=== PATIENT | female | born 1990 | race Two or more races ===

== ENCOUNTER → 2021-08-09 | Outpatient (CLI) | payer OTHER ==
[~2021-08-09] MED LIST: BUPIVACAINE/DEXTROSE MPF 0.75% 2 ML AMP IT ONE; DOCU-94 PO; DexAMETHasone SOD PHOS 10MG/1ML VIAL INJ ONE; EPINEPHrine HCL 1 MG/1 ML AMP ONE; FERR27TA2 PO; HYDR-4833 PO; IBUP600T27 PO; LEVO112T4 PO; MIDAZOLAM HCL 2MG/2ML 2ml VIAL (1mg/ml) ONE; MORPHINE SULF PF 2 MG/2 ML SYRG ONE; ONDANSETRON HCL 4 MG/2 ML VIAL ONE; PREN-96 PO; fentaNYL CITRATE 100 MCG/2 ML VL ONE; oxyTOCIN 10 UNIT/ML 10ML VIAL ONE
== END | disposition home or self-care (01) ==
LOC: OB 08:05
PROVIDERS: ATTEND Obstetrics & Gynecology
DX: Z01.812 Encounter for preprocedural laboratory examination (principal); Z20.822 Contact with and (suspected) exposure to COVID-19
CPT/HCPCS: C9803; U0003; J0171; J2250; J2405

== ENCOUNTER 2021-08-11 04:50 | Inpatient (IN) | payer OTHER ==
[2021-08-11] VITALS (18 sets, daily range): BP systolic 101–136; BP diastolic 50–81
[~2021-08-11] VITALS: Ht 162.6 cm; Wt 100.7 kg
[2021-08-11] MEDS ORDERED: LACTATED RINGER'S 1,000 ML IV ONE (05:15)
[2021-08-11] MEDS ORDERED: ceFAZolin 1GM/50ML 50 ML IV ONE (05:15)
[2021-08-11 06:01] LABS: Urine Bacteria FEW /hpf (None Seen); Urine Blood Negative /uL (Negative); Urine Mucus FEW (None Seen); Urine WBC 5 /hpf (0 - 5)
[2021-08-11 06:16] LABS: Basophils # (auto) 0 10 ^3/uL (0-0.2); Basophils % (auto) 0.3 % (0.0-2.0); Eosinophils # (auto) 0.1 10 ^3/uL (0-0.8); Eosinophils % (auto) 1.7 % (0.0-7.0); Hematocrit 35.1 % (36.0-46.0); Hemoglobin 11.5 g/dL (12.2-16.2); Lymphocytes # (auto) 1.9 10 ^3/uL (0.4-5.4); Lymphocytes % (auto) 22.9 % (10.0-50.0); Mean Corpuscular Hemoglobin 27.4 pg (28.0-32.0); Mean Corpuscular Hgb Conc. 32.9 g/dL (32.0-36.0); Mean Corpuscular Volume 83.2 fL (80.0-100.0); Monocytes # (auto) 0.6 10 ^3/uL (0-1.3); Neutrophils # (auto) 5.7 10 ^3/uL (1.6-8.6); Neutrophils % (auto) 68.1 % (37.0-80.0); Nucleated Red Blood Cells % 0.1 %; Red Blood Cells 4.21 10^6/uL (4.0-5.20); Red Cell Distribution Width 19.5 % (11.8-14.3); White Blood Cell 8.4 10^3/uL (4.4-10.8)
[2021-08-11 06:17] LABS: Albumin 2.6 g/dL (3.4-5.0); BUN/Creatinine Ratio 15.7; Calcium 8.6 mg/dL (8.5-10.1); Potassium 3.8 mmol/L (3.5-5.1)
[2021-08-11] MEDS ORDERED: PREN-96 PO (06:17)
[2021-08-11] MEDS ORDERED: LEVO112T4 PO (06:19)
[2021-08-11] MEDS ORDERED: FERR27TA2 PO (06:19)
[2021-08-11 06:20] LABS: Bilirubin, Total 0.2 mg/dL (0.2-1.0); Total Protein 6.4 g/dL (6.4-8.2)
[2021-08-11 06:25] LABS: Amphetamine Screen, Urine NEGATIVE (NEGATIVE); Barbiturate Scree,Urine NEGATIVE (NEGATIVE); Benzodiazephine Screen, Urine NEGATIVE (NEGATIVE); Cannabinoid Screen, Urine NEGATIVE (NEGATIVE)
[2021-08-11 06:31] LABS: Alcohol, Urine < 3.0 mg/dL (0-10); Cocaine Screen, Urine NEGATIVE (NEGATIVE); Opiate Scree,Urine NEGATIVE (NEGATIVE); Phencyclidine Screen, Urine NEGATIVE (NEGATIVE)
[2021-08-11] MEDS: LACTATED RINGER'S 1,000 ML IV SCH ×3 (07:04→17:58)
[2021-08-11 07:07] LABS: INR 0.96 (0.9-1.15); Partial Thromboplastin Time 26.2 sec (23.6-33.0)
[2021-08-11] MEDS ORDERED: TETRACAINE 1% INJ 2 ML VIAL IJ ONE (07:44)
[2021-08-11] MEDS ORDERED: SUCCINYLCHOLINE CHLORIDE 20 MG/ML 10ML VIAL IV ONE (07:44)
[2021-08-11] MEDS ORDERED: ceFAZolin 1GM/50ML 50 ML IV SCH ×2 (09:45→14:00)
[2021-08-11] MEDS ORDERED: ONDANSETRON HCL 4 MG/2 ML VIAL IV PRN (09:45)
[2021-08-11] MEDS ORDERED: LACT. RINGERS/OXYTOCIN 20UNITS 1,000 ML IV ONE (09:45)
[2021-08-11] MEDS ORDERED: MORPHINE SULFATE 4 MG/ML SYR/VIAL IV PRN ×2 (09:45→10:30)
[2021-08-11] MEDS ORDERED: METOCLOPRAMIDE HCL 5MG/ml INJ 2ml VIAL IV PRN (10:30)
[2021-08-11] MEDS ORDERED: KETOROLAC TROMETH 30 MG/ML 1ML VIAL IV ONE (10:30)
[2021-08-11] MEDS ORDERED: NALOXONE HCL 0.4 MG/ML VIAL IV PRN (10:30)
[2021-08-11] MEDS ORDERED: HYDROmorphone HCL 2 MG/ML VL IV PRN (10:30)
[2021-08-11] MEDS ORDERED: diphenhdrAMINE HCL 50 MG/1 ML VL IV PRN (10:30)
[2021-08-11] MEDS: ACETAMINOPHEN IV 1000 MG/100ML (10MG/ML) IV PRN (12:51)
[2021-08-11] MEDS ORDERED: EPINEPHrine HCL 1 MG/1 ML AMP IM ONE (14:08)
[2021-08-11] MEDS ORDERED: MORPHINE SULF PF 2 MG/2 ML SYRG IV ONE (14:08)
[2021-08-11] MEDS ORDERED: oxyTOCIN 10 UNIT/ML 10ML VIAL IV ONE (14:08)
[2021-08-11] MEDS ORDERED: MIDAZOLAM HCL 2MG/2ML 2ml VIAL (1mg/ml) IV ONE (14:08)
[2021-08-11] MEDS ORDERED: ONDANSETRON HCL 4 MG/2 ML VIAL IV ONE (14:08)
[2021-08-11] MEDS ORDERED: DexAMETHasone SOD PHOS 10MG/1ML VIAL INJ IV ONE (14:08)
[2021-08-11] MEDS ORDERED: fentaNYL CITRATE 100 MCG/2 ML VL IV ONE (14:08)
[2021-08-11] MEDS ORDERED: BUPIVACAINE/DEXTROSE MPF 0.75% 2 ML AMP IT ONE (14:08)
[2021-08-11 22:05] LABS: Basophils # (auto) 0 10 ^3/uL (0-0.2); Basophils % (auto) 0.3 % (0.0-2.0); Eosinophils # (auto) 0 10 ^3/uL (0-0.8); Hematocrit 32.3 % (36.0-46.0); Hemoglobin 10.7 g/dL (12.2-16.2); Lymphocytes # (auto) 1.5 10 ^3/uL (0.4-5.4); Lymphocytes % (auto) 9.7 % (10.0-50.0); Mean Corpuscular Hemoglobin 27.6 pg (28.0-32.0); Mean Corpuscular Hgb Conc. 33.2 g/dL (32.0-36.0); Mean Corpuscular Volume 83.2 fL (80.0-100.0); Monocytes # (auto) 0.7 10 ^3/uL (0-1.3); Monocytes % (auto) 4.6 % (0.0-12.0); Neutrophils # (auto) 12.8 10 ^3/uL (1.6-8.6); Neutrophils % (auto) 85.4 % (37.0-80.0); Nucleated Red Blood Cells % 0.1 %; Red Blood Cells 3.88 10^6/uL (4.0-5.20); Red Cell Distribution Width 19.4 % (11.8-14.3)
[2021-08-11] MEDS: ceFAZolin 1GM/50ML 50 ML IV SCH (23:24)
[2021-08-12] VITALS (11 sets, daily range): BP systolic 97–122; BP diastolic 41–62
[2021-08-12] MEDS: ACETAMINOPHEN IV 1000 MG/100ML (10MG/ML) IV PRN (00:59)
[2021-08-12] MEDS: LACTATED RINGER'S 1,000 ML IV SCH (04:12)
[2021-08-12] MEDS: LEVOTHYROXINE SODIUM 112 MCG TAB PO SCH (07:26)
[2021-08-12] MEDS: ceFAZolin 1GM/50ML 50 ML IV SCH (07:26)
[2021-08-12 07:31] LABS: Basophils # (auto) 0 10 ^3/uL (0-0.2); Basophils % (auto) 0.1 % (0.0-2.0); Eosinophils # (auto) 0 10 ^3/uL (0-0.8); Eosinophils % (auto) 0.1 % (0.0-7.0); Hematocrit 29.8 % (36.0-46.0); Hemoglobin 9.9 g/dL (12.2-16.2); Lymphocytes # (auto) 2.6 10 ^3/uL (0.4-5.4); Lymphocytes % (auto) 19.6 % (10.0-50.0); Mean Corpuscular Hemoglobin 27.6 pg (28.0-32.0); Mean Corpuscular Hgb Conc. 33.3 g/dL (32.0-36.0); Mean Corpuscular Volume 82.9 fL (80.0-100.0); Monocytes # (auto) 1.1 10 ^3/uL (0-1.3); Monocytes % (auto) 8.2 % (0.0-12.0); Neutrophils # (auto) 9.6 10 ^3/uL (1.6-8.6); Red Blood Cells 3.59 10^6/uL (4.0-5.20); Red Cell Distribution Width 19.2 % (11.8-14.3); White Blood Cell 13.3 10^3/uL (4.4-10.8)
[2021-08-12] MEDS ORDERED: SIMETHICONE 80 MG CHEWABLE TABLET PO PRN (10:15)
[2021-08-12] MEDS ORDERED: HYDROcodone-ACET 5/325MG TAB PO PRN ×2 (10:15)
[2021-08-12] MEDS ORDERED: BISACODYL 10 MG RECT SUPP PR PRN (10:15)
[2021-08-12] MEDS ORDERED: DOCUSATE CALCIUM 240 MG CAP PO SCH (10:30)
[2021-08-12] MEDS: IBUPROFEN 800 MG TAB PO PRN ×2 (10:34→22:10)
[2021-08-12] MEDS ORDERED: ACETAMINOPHEN 325 MG TAB PO PRN (16:00)
[2021-08-12] MEDS ORDERED: ACETAMINOPHEN IV 1000 MG/100ML (10MG/ML) IV ONE (16:15)
[2021-08-12] MEDS ORDERED: DOCUSATE SOD 100 MG CAP PO SCH (22:00)
[2021-08-12] MEDS: DOCUSATE CALCIUM 240 MG CAP PO SCH (22:31)
[2021-08-13 02:53] VITALS: BP 100/51
[2021-08-13] MEDS: IBUPROFEN 800 MG TAB PO PRN (05:58)
[2021-08-13 06:06] LABS: RPR Non Reactive (Non Reactive)
[2021-08-13 07:00] VITALS: BP 102/62
[2021-08-13] MEDS: LEVOTHYROXINE SODIUM 112 MCG TAB PO SCH (07:40)
[2021-08-13] MEDS ORDERED: HYDR-4833 PO (08:42)
[2021-08-13] MEDS ORDERED: IBUP600T27 PO (08:43)
[2021-08-13] MEDS ORDERED: DOCU-94 PO (08:43)
[2021-08-13] MEDS ORDERED: DOCUSATE CALCIUM 240 MG CAP PO SCH (10:00)
[2021-08-13] MEDS ORDERED: DERMOPLAST 60ML BOTTLE TOP PRN (10:30)
[2021-08-13] MEDS ORDERED: WITCH HAZEL-GLYCERIN PAD TOP PRN (10:30)
[2021-08-13] MEDS: DOCUSATE CALCIUM 240 MG CAP PO SCH (10:46)
[2021-08-13 10:51] VITALS: BP 114/61
== END 2021-08-13 14:29 | disposition home or self-care (01) | DRG 787 ==
LOC: LDRP 04:50
PROVIDERS: ADMIT Obstetrics & Gynecology; ATTEND Obstetrics & Gynecology
PROC: 10D00Z1 Extraction of Products of Conception, Low, Open Approach (ICD-10-PCS; principal; 2021-08-11 08:40)
DX: O34.211 Maternal care for low transverse scar from previous cesarean delivery (principal); R71.0 Precipitous drop in hematocrit; Z37.0 Single live birth; Z3A.38 38 weeks gestation of pregnancy
CPT/HCPCS: 36415; 59025; 80053; 80307; 81001; 81002; 85025; 85610; 85730; 86592; 86850; 86900; 86901; 94760; 94762; 96360; 96361; 96365; 96366; G0378; J0131; J0171; J0330; J0690; J1100; J2250; J2405; J2590

== ENCOUNTER 2025-04-11 07:46 | Observation (INO) | payer OTHER ==
[~2025-04-11 07:46] MED LIST changes: -BUPIVACAINE/DEXTROSE MPF 0.75% 2 ML AMP IT ONE; -DexAMETHasone SOD PHOS 10MG/1ML VIAL INJ ONE; -EPINEPHrine HCL 1 MG/1 ML AMP ONE; +FERR1TAB31 PO; -FERR27TA2 PO; +IBUP-1454 PO; -IBUP600T27 PO; -MIDAZOLAM HCL 2MG/2ML 2ml VIAL (1mg/ml) ONE; -MORPHINE SULF PF 2 MG/2 ML SYRG ONE; -ONDANSETRON HCL 4 MG/2 ML VIAL ONE; -fentaNYL CITRATE 100 MCG/2 ML VL ONE; -oxyTOCIN 10 UNIT/ML 10ML VIAL ONE
--- NOTE | 2025-04-11 10:01 | DVHDS2 ---
Physician Discharge Progress N Final Diagnosis: testing for AMA/hypothyroid Operations or Procedures: Operations or Procedures 34yo IUP@30.4wks VSS NST reactive FKC/PTL precautions reviewed. Dr. Delatorre consulted, agrees with POC. Condition on Discharge: Stable Disposition: Home Discharge Instructions: Diet: Regular Activity: No Restrictions, As Tolerated Follow Up/Referral: Follow up in birthplace in one week for NST only Medications: see med list Follow Up Care: Specialist: f/u in 1 wk Discharge Statement: "Patient was advised to return to the ER or call 911 if any headaches, dizziness, shortness of breath, chest pain, abdominal pain, bleeding, fevers, or worsening of medical condition. Patient was counseled about treatment plan, medications, possible side effects, patientverbalized understanding. All questions were answered to the best of my ability. This discharge took greater then 30 minutes in planning, reviewing documentation, counseling the patient, and discussing with other team members." Visit Coding OBGYN Date of Service: Apr 11, 2025 Billing Provider: FUAD STARR CNM IMMERSION METALCLEANER Common Visit Codes: [id number] OBS CARE (HIGH) IMMERSION METALCLEANER Procedure Codes: 36472-69- NON-STRESS TEST FUAD STARR CNM Apr 11, 2025 10:01
== END 2025-04-11 09:08 | disposition home or self-care (01) ==
LOC: LDRP 07:46
PROVIDERS: ADMIT Obstetrics & Gynecology; ATTEND Obstetrics & Gynecology
DX: O99.283 Endocrine, nutritional and metabolic diseases complicating pregnancy, third trimester (principal); E03.9 Hypothyroidism, unspecified; O09.523 Supervision of elderly multigravida, third trimester; Z3A.30 30 weeks gestation of pregnancy; Z98.890 Other specified postprocedural states; Z79.899 Other long term (current) drug therapy
CPT/HCPCS: 59025; 81002; 94760; G0378

== ENCOUNTER 2025-04-17 08:37 | Outpatient (CLI) | payer OTHER ==
[2025-04-17 09:27] LABS: Hematocrit 33.3 % (36.0-46.0); Hemoglobin 11.2 g/dL (12.2-16.2); Mean Corpuscular Hemoglobin 27.1 pg (28.0-32.0); Mean Corpuscular Volume 80.7 fL (80.0-100.0); Nucleated Red Blood Cells % 0.0 %
[2025-04-17 10:05] LABS: Beta HCG, Quantitative 3785.0 mIU/mL (1.5-4.2)
[2025-04-17 15:57] LABS: Thyroid Stimulating Hormone 6.42 uIU/mL (0.55-4.78)
== END 2025-04-17 17:00 | disposition home or self-care (01) ==
LOC: LAB 08:37
DX: Z34.93 Encounter for supervision of normal pregnancy, unspecified, third trimester (principal); Z3A.31 31 weeks gestation of pregnancy
CPT/HCPCS: 36415; 84439; 84443; 84702; 85025; 86850; 86900; 86901

== ENCOUNTER 2025-04-20 07:48 | Observation (INO) | payer OTHER ==
[~2025-04-20] VITALS: Ht 162.6 cm; Wt 103.4 kg
== END 2025-04-20 08:33 | disposition home or self-care (01) ==
LOC: UNDOADMOB 07:48 → LDRP 07:48
PROVIDERS: ADMIT Obstetrics & Gynecology; ATTEND Obstetrics & Gynecology
DX: O99.283 Endocrine, nutritional and metabolic diseases complicating pregnancy, third trimester (principal); E03.9 Hypothyroidism, unspecified; Z3A.31 31 weeks gestation of pregnancy; Z98.890 Other specified postprocedural states
CPT/HCPCS: 59025; 81002; 94760; G0378

== ENCOUNTER 2025-04-27 06:22 | Observation (INO) | payer OTHER ==
[2025-04-27] MEDS ORDERED: LEVO100T8 PO (08:53)
--- NOTE | 2025-04-27 09:06 | DVH ---
BIOPHYSICAL PROFILE HISTORY: hypothyroid TECHNIQUE: Multiple transabdominal real-time grayscale sonographic images through the gravid uterus o f the fetus with duplex doppler color flow and M-mode spectral analysis FINDINGS: BIOPHYSICAL PROFILE: breathing score: 2 movement score: 2 tone score: 2 Quantitative LINCOLN score: 2 (LINCOLN: 10.8 cm.) Total score: 8/8 Single live fetus in cephalic presentation. heart rate 133 beats per minute. Posterior placenta without previa or abruption Biophysical profile score 8/8 corresponding to an MIA of 06/16/25 IMPRESSION: Biophysical profile score: 8/8
--- NOTE | 2025-04-27 14:44 | DVHDS2 ---
Physician Discharge Progress N Final Diagnosis: hypothy,ama 32 wks Operations or Procedures: Operations or Procedures nst reactive reviwedsherylo Condition on Discharge: Good Disposition: Home Discharge Instructions: Diet: Regular Activity: Light activity Medications: na Follow Up Care: Specialist: 1w Discharge Statement: "Patient was advised to return to the ER or call 911 if any headaches, dizziness, shortness of breath, chest pain, abdominal pain, bleeding, fevers, or worsening of medical condition. Patient was counseled about treatment plan, medications, possible side effects, patientverbalized understanding. All questions were answered to the best of my ability. This discharge took greater then 30 minutes in planning, reviewing documentation, counseling the patient, and discussing with other team members." Visit Coding OBGYN Date of Service: Apr 27, 2025 Billing Provider: OZZIE CORRAL DO ELECTRO OPTICS ENGINEER Common Visit Codes: 50248-[id number] OBS CARE (HIGH) ELECTRO OPTICS ENGINEER Procedure Codes: 85887-36- NON-STRESS TEST OZZIE CORRAL DO Apr 27, 2025 14:44
== END 2025-04-27 09:16 | disposition home or self-care (01) ==
LOC: UNDOADMOB 07:58 → LDRP 07:58
PROVIDERS: ADMIT Obstetrics & Gynecology; ATTEND Obstetrics & Gynecology
DX: O99.283 Endocrine, nutritional and metabolic diseases complicating pregnancy, third trimester (principal); E03.9 Hypothyroidism, unspecified; O09.513 Supervision of elderly primigravida, third trimester; Z3A.32 32 weeks gestation of pregnancy; Z79.899 Other long term (current) drug therapy; Z98.890 Other specified postprocedural states
CPT/HCPCS: 76818; 81002; 94760; G0378; 76819

== ENCOUNTER 2025-05-04 08:28 | Observation (INO) | payer OTHER ==
[~2025-05-04 08:28] MED LIST changes: +LEVO100T8 PO
--- NOTE | 2025-05-04 09:51 | DVH ---
CLINICAL HISTORY: Advanced maternal age. Hypothyroid. COMPARISON: US BIOPHYSICAL PROFILE on DOS: 04/27/25 TECHNIQUE: biophysical profile was performed. Transabdominal sonographic images of the fetus we re obtained. FINDINGS: The fetus is in cephalic position. heart rate measures 147 BPM. Amniotic fluid index measures 13.6 cm. The placenta is posterior in position without evidence of previa or abruption seen. BPP profile is an overall score of 8/8, with 2/2 points for breathing, with at least one episode of breathing over a 30 second duration during a 30 minute observation, 2/2 points for m ovements, with 3 or more discrete body or limb movements, 2/2 points for tone, with one or more episodes of extremity extension with return to flexion, or opening and closing of hand, and 2/ 2 points for amniotic fluid, with at least 1 pocket of amniotic fluid that measures 2 cm in 2 perpend icular planes. IMPRESSION: BPP score of 8/8.
--- NOTE | 2025-05-04 16:02 | DVHDS2 ---
Physician Discharge Progress N Final Diagnosis: AM,HYPOTHYROID 33WKS Operations or Procedures: Operations or Procedures NST REACTIVE REVIWED,SONO Condition on Discharge: Good Disposition: Home Discharge Instructions: Diet: Regular Activity: No Restrictions, As Tolerated Medications: NA Follow Up Care: Specialist: 3D Discharge Statement: "Patient was advised to return to the ER or call 911 if any headaches, dizziness, shortness of breath, chest pain, abdominal pain, bleeding, fevers, or worsening of medical condition. Patient was counseled about treatment plan, medications, possible side effects, patientverbalized understanding. All questions were answered to the best of my ability. This discharge took greater then 30 minutes in planning, reviewing documentation, counseling the patient, and discussing with other team members." Visit Coding OBGYN Date of Service: May 04, 2025 Billing Provider: OZZIE CORRAL DO SOCIAL SERVICE COORDINATOR Common Visit Codes: [id number]-[id number] INP/OBS CARE (HIGH) SOCIAL SERVICE COORDINATOR Procedure Codes: 29622-19- NON-STRESS TEST OZZIE CORRAL DO May 04, 2025 16:02
== END 2025-05-04 10:12 | disposition home or self-care (01) ==
LOC: LDRP 08:55
PROVIDERS: ADMIT Obstetrics & Gynecology; ATTEND Obstetrics & Gynecology
DX: O99.283 Endocrine, nutritional and metabolic diseases complicating pregnancy, third trimester (principal); E03.9 Hypothyroidism, unspecified; Z3A.33 33 weeks gestation of pregnancy; Z98.890 Other specified postprocedural states
CPT/HCPCS: 76818; 81002; 94760; G0378; 59025; 76819

== ENCOUNTER 2025-05-11 06:08 | Observation (INO) | payer OTHER ==
--- NOTE | 2025-05-11 08:44 | DVH ---
BIOPHYSICAL PROFILE HISTORY: AMA/hypothyroid Comparison Study: US BIOPHYSICAL PROFILE on DOS: 05/04/25, US BIOPHYSICAL PROFILE on DOS: 04/27/25 TECHNIQUE: Multiple real-time grayscale sonographic images through the gravid uterus of the fetus wi th duplex Doppler color flow and M-mode spectral analysis FINDINGS: BIOPHYSICAL PROFILE: breathing score: 2 movement score: 2 tone score: 2 Quantitative LINCOLN score: 2 (LINCOLN: 11.9 Cm.) Total score: 8 The cervix is not visualized Single live fetus in cephalic presentation. heart rate 138 beats per minute. Posterior/fundal placenta without previa or abruption IMPRESSION: Biophysical profile score: 8
--- NOTE | 2025-05-12 15:59 | DVHDS2 ---
Physician Discharge Progress N Final Diagnosis: ama,hypothyroidism 34 wks Operations or Procedures: Operations or Procedures nst reactve reviwed,sono Other Interventions Other Interventions pt has been seeing laurel banerjee and has not seen endocrine or pcp for her thyroid ds ,now i found out her tsh is high .dr gerber has not adjusted either.i urged nurse to tell pt to see pcp gladis and now i increased her synth to 125mcg recheck tsh in 4 wks . risks and comp[ of poor thyroid control and its effect on baby including iufd,mental develp delay , abruption ,pih and otehr abn informed to pt .pt fullu understands that she has been noncompliant and admits not having proper fu re thyroid ds with endocrine as well as pcp Condition on Discharge: Good Disposition: Home Discharge Instructions: Diet: Regular Activity: No Restrictions, As Tolerated Medications: call in thyroid med synth 125mcg one qd Follow Up Care: Specialist: 3d Discharge Statement: "Patient was advised to return to the ER or call 911 if any headaches, dizziness, shortness of breath, chest pain, abdominal pain, bleeding, fevers, or worsening of medical condition. Patient was counseled about treatment plan, medications, possible side effects, patientverbalized understanding. All questions were answered to the best of my ability. This discharge took greater then 30 minutes in planning, reviewing documentation, counseling the patient, and discussing with other team members." Visit Coding OBGYN Date of Service: May 11, 2025 Billing Provider: OZZIE CORRAL DO CAR CLERK PULLMAN Common Visit Codes: 14626-[id number] OBS CARE (HIGH) CAR CLERK PULLMAN Procedure Codes: 49998-48- NON-STRESS TEST OZZIE CORRAL DO May 12, 2025 15:59
== END 2025-05-11 10:52 | disposition home or self-care (01) ==
LOC: LDRP 07:48
PROVIDERS: ADMIT Obstetrics & Gynecology; ATTEND Obstetrics & Gynecology
DX: O99.283 Endocrine, nutritional and metabolic diseases complicating pregnancy, third trimester (principal); E03.9 Hypothyroidism, unspecified; O09.523 Supervision of elderly multigravida, third trimester; Z3A.34 34 weeks gestation of pregnancy; Z98.890 Other specified postprocedural states
CPT/HCPCS: 36415; 76818; 81002; 84439; 84443; G0378; 59025; 76819

== ENCOUNTER 2025-05-18 03:50 | Observation (INO) | payer OTHER ==
[2025-05-18] MEDS ORDERED: LEVO125C3 PO (08:12)
--- NOTE | 2025-05-18 09:10 | DVH ---
BIOPHYSICAL PROFILE HISTORY: AMA/Hypothyroid TECHNIQUE: Multiple transabdominal real-time grayscale sonographic images through the gravid uterus of the fetus with duplex Doppler color flow and M-mode spectral analysis FINDINGS: BIOPHYSICAL PROFILE: breathing score: 2 movement score: 2 tone score: 2 Quantitative LINCOLN score: 2 (LINCOLN: 12.4 Cm.) Total score: 8 The cervix not well visualized. Single live fetus cephalic presentation. heart rate 156 beats per minute. Fundal/posterior placenta without previa or abruption IMPRESSION: Biophysical profile score: 8
--- NOTE | 2025-05-19 04:20 | DVHDS2 ---
Physician Discharge Progress N Final Diagnosis: AMA,HYPOTH 35WKS Operations or Procedures: Operations or Procedures NST REACTIVE REVIWED,SONO Condition on Discharge: Good Disposition: Home Discharge Instructions: Diet: Regular Activity: Light activity Medications: NA Follow Up Care: Specialist: 1W Discharge Statement: "Patient was advised to return to the ER or call 911 if any headaches, dizziness, shortness of breath, chest pain, abdominal pain, bleeding, fevers, or worsening of medical condition. Patient was counseled about treatment plan, medications, possible side effects, patientverbalized understanding. All questions were answered to the best of my ability. This discharge took greater then 30 minutes in planning, reviewing documentation, counseling the patient, and discussing with other team members." Visit Coding OBGYN Date of Service: May 18, 2025 Billing Provider: OZZIE CORRAL DO GREEN PRIZE PACKER Common Visit Codes: 49084-[id number] OBS CARE (HIGH) GREEN PRIZE PACKER Procedure Codes: 02016-63- NON-STRESS TEST OZZIE CORRAL DO May 19, 2025 04:20
== END 2025-05-18 09:20 | disposition home or self-care (01) ==
LOC: LDRP 07:40
PROVIDERS: ADMIT Obstetrics & Gynecology; ATTEND Obstetrics & Gynecology
DX: O99.283 Endocrine, nutritional and metabolic diseases complicating pregnancy, third trimester (principal); E03.9 Hypothyroidism, unspecified; Z3A.35 35 weeks gestation of pregnancy; Z98.890 Other specified postprocedural states
CPT/HCPCS: 76818; 81002; 94760; G0378; 76819

== ENCOUNTER 2025-05-23 18:52 | Observation (INO) | payer OTHER ==
[~2025-05-23] VITALS: Ht 162.6 cm; Wt 106.6 kg
[~2025-05-23 18:52] MED LIST changes: +LEVO125C3 PO
--- NOTE | 2025-05-23 19:46 | DVH ---
OB ULTRASOUND, LIMITED CLINICAL INDICATION: SCHEDULED FOR PIH TECHNIQUE: Multiple grayscale ultrasound and M-mode images were obtained of the pelvis for evaluation of intrauterine . COMPARISON: US BIOPHYSICAL PROFILE on DOS: 05/18/25, US BIOPHYSICAL PROFILE on DOS: 05/11/25, US BIOPHY SICAL PROFILE on DOS: 05/04/25 FINDINGS: A single living fetus is seen in cephalic presentation. Biophysical profile: 8 breathin movements: 2 tone: 2 Amniotic fluid volume: 2 Placenta: Posterior. Amniotic fluid: Visibly normal. LINCOLN 12.4 cm heart rate: 160 beats/min. A complete anatomic survey was not performed on this exam. IMPRESSION: 1. Biophysical profile: 8/8 weeks
[2025-05-23 20:05] LABS: Hematocrit 32.1 % (36.0-46.0); Hemoglobin 10.8 g/dL (12.2-16.2); Mean Corpuscular Hemoglobin 26.1 pg (28.0-32.0); Mean Corpuscular Volume 77.9 fL (80.0-100.0); Nucleated Red Blood Cells % 0.0 %
[2025-05-23] MEDS: ACETAMINOPHEN 325 MG TAB PO STA (20:22)
[2025-05-23 20:23] LABS: INR 0.96 (0.9-1.15); Partial Thromboplastin Time 26.1 SEC (24.5-34.5); Prothrombin Time 10.2 sec (9.3-11.8)
[2025-05-23 20:29] LABS: Alanine Aminotransferase 13 U/L (7-40); Albumin 3.8 g/dL (3.2-4.8); Alkaline Phosphatase 102 U/L (46-116); Anion Gap 12 (5-15); BUN/Creatinine Ratio 15.4 (10.0-20.0); Calcium 9.1 mg/dL (8.7-10.4); Carbon Dioxide 20 mmol/L (20-31); Sodium 140 mmol/L (136-145); Total Protein 6.6 g/dL (5.7-8.2); Uric Acid 3.4 mg/dL (3.1-7.8)
[2025-05-23 20:34] LABS: Bilirubin, Total 0.2 mg/dL (0.2-1.0); Blood Urea Nitrogen 8 mg/dL (9-23); Chloride 108 mmol/L (98-107); Glucose 121 mg/dL (74-106); Potassium 3.5 mmol/L (3.5-5.1)
[2025-05-23 20:46] LABS: Protein, Urine 6.4 mg/dL (1-14)
--- NOTE | 2025-05-23 21:18 | DVHDS2 ---
Physician Discharge Progress N Final Diagnosis: ruled out preeclampsia testing for AMA/hypothyroid Operations or Procedures: Operations or Procedures 35yo IUP@36.4wks, +FM, denies UCs/VB/LOF/vision changes/RUQ pain. 10/31 headache initially VSS, see CPN NST reactive Tylenol 975mg PO given and pt denies headache afterwards FKC/PTL/PreE precautions reviewed. Dr. Delatorre consulted, agrees with POC. Laboratory Tests Test 05/23/25 19:07 05/23/25 19:34 Range/Units Urine Creatinine 42.41 30.0-125.0 mg/dL Urine Protein/Creatinine Ratio 0.15 Urine Total Protein 6.4 1-14 mg/dL White Blood Count 10.3 4.4-10.8 10^3/uL Red Blood Count 4.12 4.0-5.20 10^6/uL Hemoglobin 10.8 L 12.2-16.2 g/dL Hematocrit 32.1 L 36.0-46.0 % Mean Corpuscular Volume 77.9 L 80.0-100.0 fL Mean Corpuscular Hemoglobin 26.1 L 28.0-32.0 pg Mean Corpuscular Hemoglobin Concent 33.5 32.0-36.0 g/dL Red Cell Distribution Width 16.0 H 11.8-14.3 % Platelet Count 306 140-450 10^3/uL Mean Platelet Volume 7.7 6.9-10.8 fL Neutrophils (%) (Auto) 69.6 37.0-80.0 % Lymphocytes (%) (Auto) 21.8 10.0-50.0 % Monocytes (%) (Auto) 6.6 0.0-12.0 % Eosinophils (%) (Auto) 1.8 0.0-7.0 % Basophils (%) (Auto) 0.2 0.0-2.0 % Neutrophils # (Auto) 7.2 1.6-8.6 10 ^3/uL Lymphocytes # (Auto) 2.2 0.4-5.4 10 ^3/uL Monocytes # (Auto) 0.7 0-1.3 10 ^3/uL Eosinophils # (Auto) 0.2 0-0.8 10 ^3/uL Basophils # (Auto) 0 0-0.2 10 ^3/uL Nucleated Red Blood Cells 0.0 % Prothrombin Time 10.2 9.3-11.8 sec Prothrombin Time INR 0.96 0.9-1.15 Activated Partial Thromboplast Time 26.1 24.5-34.5 SEC Fibrin Degradation Products Pending Sodium Level 140 136-145 mmol/L Potassium Level 3.5 3.5-5.1 mmol/L Chloride Level 108 H 98-107 mmol/L Carbon Dioxide Level 20 20-31 mmol/L Anion Gap 12 5-15 Blood Urea Nitrogen 8 L 9-23 mg/dL Creatinine 0.52 L 0.550-1.02 mg/dL Glomerular Filtration Rate Calc 123 >90 mL/min BUN/Creatinine Ratio 15.4 10.0-20.0 Serum Glucose 121 H 74-106 mg/dL Uric Acid 3.4 3.1-7.8 mg/dL Calcium Level 9.1 8.7-10.4 mg/dL Total Bilirubin 0.2 0.2-1.0 mg/dL Aspartate Amino Transferase (AST) 16 13-40 U/L Alanine Aminotransferase (ALT) 13 7-40 U/L Alkaline Phosphatase 102 46-116 U/L Total Protein 6.6 5.7-8.2 g/dL Albumin 3.8 3.2-4.8 g/dL Other Interventions Other Interventions [place] [address] Ph: [phone] DIAGNOSTIC IMAGING Diagnostic Imaging Report : [id number] Signed PATIENT: JODY CALDERONACCT: [id number] UNIT: [id number] : 1990 LOC: [facility] ROOM / BED: [facility] / A AGE / SEX: 35 / F ADM STATUS: ADM IN SERVICE 06 ORDERING PHYSICIAN: FUAD STARR CNM PROCEDURE(s): BPP - BIOPHYSICAL PROFILE REASON: SCHEDULED FOR PIH ORDER NUMBER(s): [id number], ACCESSION NUMBER(s): [id number] OB ULTRASOUND, LIMITED CLINICAL INDICATION: SCHEDULED FOR PIH TECHNIQUE: Multiple grayscale ultrasound and M-mode images were obtained of the pelvis for evaluation of intrauterine . COMPARISON: US BIOPHYSICAL PROFILE on DOS: 05/18/25, US BIOPHYSICAL PROFILE on DOS: 05/11/25, US BIOPHYSICAL PROFILE on DOS: 05/04/25 FINDINGS: A single living fetus is seen in cephalic presentation. Biophysical profile: 03/31 breathin movements: 2 tone: 2 Amniotic fluid volume: 2 Placenta: Posterior. Amniotic fluid: Visibly normal. LINCOLN 12.4 cm heart rate: 160 beats/min. A complete anatomic survey was not performed on this exam. IMPRESSION: 1. Biophysical profile: 8 weeks ATED BY: BHARATH WOLF MD DICTATED DATE/TIME: 05/23/251942 SIGNED BY: BHARATH WOLF MD SIGNED DATE/TIME: 05/23/251942 CC: Condition on Discharge: Stable Disposition: Home Discharge Instructions: Diet: Regular Activity: No Restrictions, As Tolerated Medications: see med list Follow Up Care: Specialist: f/u in 1 wk Discharge Statement: "Patient was advised to return to the ER or call 911 if any headaches, dizziness, shortness of breath, chest pain, abdominal pain, bleeding, fevers, or worsening of medical condition. Patient was counseled about treatment plan, medications, possible side effects, patientverbalized understanding. All questions were answered to the best of my ability. This discharge took greater then 30 minutes in planning, reviewing documentation, counseling the patient, and discussing with other team members." Visit Coding OBGYN Date of Service: May 23, 2025 Billing Provider: FUAD STARR CNM CUSTOMER TRAINER Common Visit Codes: 67971-[id number] OBS CARE (HIGH) CUSTOMER TRAINER Procedure Codes: 61435-47- NON-STRESS TEST FUAD STARR CNM May 23, 2025 21:18
== END 2025-05-23 21:39 | disposition home or self-care (01) ==
LOC: LDRP 18:52
PROVIDERS: ADMIT Obstetrics & Gynecology; ATTEND Obstetrics & Gynecology
DX: O09.523 Supervision of elderly multigravida, third trimester (principal); R79.1 Abnormal coagulation profile; Z3A.36 36 weeks gestation of pregnancy; Z98.890 Other specified postprocedural states
CPT/HCPCS: 36415; 76818; 80053; 81002; 82570; 84156; 84550; 85025; 85362; 85610; 85730; 94762; G0378; 59025; 76819

== ENCOUNTER 2025-06-01 06:05 | Observation (INO) | payer OTHER ==
--- NOTE | 2025-06-01 08:51 | DVH ---
BIOPHYSICAL PROFILE HISTORY: Hypothyroid/AMA TECHNIQUE: Multiple transabdominal real-time grayscale sonographic images through the gravid uterus of the fetus with duplex Doppler color flow and M-mode spectral analysis FINDINGS: BIOPHYSICAL PROFILE: breathing score: 2 movement score: 2 tone score: 2 Quantitative LINCOLN score: 2 (LINCOLN: 10.9 Cm.) Total score: 8 The cervix was not seen Single live fetus in cephalic presentation. heart rate 138 beats per minute. Grade III posterior placenta without previa or abruption IMPRESSION: Biophysical profile score: 8/8
--- NOTE | 2025-06-01 12:17 | DVHDS2 ---
Physician Discharge Progress N Final Diagnosis: hypothyoidism,ama 37wks Operations or Procedures: Operations or Procedures nst reactive reviwed,sherylo Condition on Discharge: Good Disposition: Home Discharge Instructions: Diet: Regular Activity: No Restrictions, As Tolerated Follow Up/Referral: as scheduled Medications: na Follow Up Care: Specialist: 1w Discharge Statement: "Patient was advised to return to the ER or call 911 if any headaches, dizziness, shortness of breath, chest pain, abdominal pain, bleeding, fevers, or worsening of medical condition. Patient was counseled about treatment plan, medications, possible side effects, patientverbalized understanding. All questions were answered to the best of my ability. This discharge took greater then 30 minutes in planning, reviewing documentation, counseling the patient, and discussing with other team members." Visit Coding OBGYN Date of Service: Jun 01, 2025 Billing Provider: OZZIE CORRAL DO INK PRINTER Common Visit Codes: 95141-[id number] OBS CARE (HIGH) INK PRINTER Procedure Codes: 71060-69- NON-STRESS TEST OZZIE CORRAL DO Jun 01, 2025 12:17
== END 2025-06-01 09:00 | disposition home or self-care (01) ==
LOC: LDRP 07:54 → UNDOADMOB 07:54 → LDRP 07:59
PROVIDERS: ADMIT Obstetrics & Gynecology; ATTEND Obstetrics & Gynecology
DX: O99.283 Endocrine, nutritional and metabolic diseases complicating pregnancy, third trimester (principal); E03.9 Hypothyroidism, unspecified; Z3A.37 37 weeks gestation of pregnancy; Z98.890 Other specified postprocedural states
CPT/HCPCS: 76818; 81002; 94760; G0378; 59025; 76819

== ENCOUNTER 2025-06-07 08:35 | Observation (INO) | payer OTHER ==
--- NOTE | 2025-06-07 10:51 | DVH ---
BIOPHYSICAL PROFILE HISTORY: AMA/Hypothyroid Comparison Study: US BIOPHYSICAL PROFILE on DOS: 06/01/25, US BIOPHYSICAL PROFILE on DOS: 05/23/25, US BIOPHYSICAL PROFILE on DOS: 05/18/25, US BIOPHYSICAL PROFILE on DOS: 05/11/25, US BIOPHYSICAL PROFILE o n DOS: 05/04/25 TECHNIQUE: Multiple real-time grayscale sonographic images through the gravid uterus of the fetus wi th duplex Doppler color flow and M-mode spectral analysis FINDINGS: BIOPHYSICAL PROFILE: breathing score: 2 movement score: 2 tone score: 2 Quantitative LINCOLN score: 2 (LINCOLN: 11.8 Cm.) Total score: 8 The cervix is not visualized Single live fetus in cephalic presentation. heart rate 141 beats per minute. Fundal placenta without previa or abruption IMPRESSION: Biophysical profile score: 8
--- NOTE | 2025-06-07 11:04 | DVHDS2 ---
Physician Discharge Progress N Final Diagnosis: hypothyroidism,ama 38wks Operations or Procedures: Operations or Procedures nst reactive rviwed,sono Condition on Discharge: Good Disposition: Home Discharge Instructions: Diet: Regular Activity: Light activity Medications: na Follow Up Care: Specialist: 1d Discharge Statement: "Patient was advised to return to the ER or call 911 if any headaches, dizziness, shortness of breath, chest pain, abdominal pain, bleeding, fevers, or worsening of medical condition. Patient was counseled about treatment plan, medications, possible side effects, patientverbalized understanding. All questions were answered to the best of my ability. This discharge took greater then 30 minutes in planning, reviewing documentati on, counseling the patient, and discussing with other team members." Visit Coding OBGYN Date of Service: Jun 07, 2025 Billing Provider: OZZIE CORRAL DO RESIDENTIAL SALES EXECUTIVE Common Visit Codes: [id number] OBS CARE (HIGH) RESIDENTIAL SALES EXECUTIVE Procedure Codes: 36094-24- NON-STRESS TEST OZZIE CORRAL DO Jun 07, 2025 11:04
== END 2025-06-07 11:16 | disposition home or self-care (01) ==
LOC: PREOBSVTOIN 08:36 → LDRP 09:47 → UNDOADMOB 09:47 → LDRP 09:57 → UNDODISOB 11:16
PROVIDERS: ADMIT Obstetrics & Gynecology; ATTEND Obstetrics & Gynecology
DX: O99.283 Endocrine, nutritional and metabolic diseases complicating pregnancy, third trimester (principal); E03.9 Hypothyroidism, unspecified; Z3A.38 38 weeks gestation of pregnancy; Z98.890 Other specified postprocedural states
CPT/HCPCS: 59025; 76819; 81002; 94760; G0378; 76818

== ENCOUNTER 2025-06-08 04:06 | Inpatient (IN) | payer OTHER ==
[2025-06-07 11:30] LABS: Hematocrit 33.5 % (36.0-46.0); Hemoglobin 10.8 g/dL (12.2-16.2); Mean Corpuscular Hemoglobin 24.9 pg (28.0-32.0); Mean Corpuscular Volume 77.4 fL (80.0-100.0); Nucleated Red Blood Cells % 0.0 %
[2025-06-07 11:42] LABS: Alanine Aminotransferase 16 U/L (7-40); Albumin 3.8 g/dL (3.2-4.8); Alkaline Phosphatase 102 U/L (46-116); Anion Gap 10 (5-15); BUN/Creatinine Ratio 13.6 (10.0-20.0); Calcium 9.1 mg/dL (8.7-10.4); Carbon Dioxide 23 mmol/L (20-31); Chloride 107 mmol/L (98-107); Glucose 91 mg/dL (74-106); INR 0.97 (0.9-1.15); Partial Thromboplastin Time 26.1 SEC (24.5-34.5); Potassium 3.8 mmol/L (3.5-5.1); Prothrombin Time 10.3 sec (9.3-11.8); Sodium 140 mmol/L (136-145); Total Protein 6.5 g/dL (5.7-8.2)
[2025-06-07 11:43] LABS: Bilirubin, Total 0.3 mg/dL (0.2-1.0)
[2025-06-07 11:44] LABS: Blood Urea Nitrogen 8 mg/dL (9-23)
[2025-06-07 12:32] LABS: Urine Protein, UAD Negative (Negative)
[2025-06-07 12:37] LABS: Amphetamine Screen, Urine Neg (NEGATIVE); Barbiturate Scree,Urine Neg (NEGATIVE); Benzodiazephine Screen, Urine Neg (NEGATIVE); Cannabinoid Screen, Urine Neg (NEGATIVE); Cocaine Screen, Urine Neg (NEGATIVE); Opiate Scree,Urine Neg (NEGATIVE); Phencyclidine Screen, Urine Neg (NEGATIVE)
[2025-06-08] VITALS (17 sets, daily range): BP systolic 90–130; BP diastolic 51–68; PULSE 61–92; RESP 11–18; TEMP 98–98.6; O2SAT 94–99
[~2025-06-08] VITALS: Ht 162.6 cm; Wt 107.0 kg
--- NOTE | 2025-06-08 04:49 | DVHHP ---
ADMIT DATE: 06/08/2025 CHIEF COMPLAINT: Labor, desires repeat section. HISTORY OF PRESENT ILLNESS: The patient is a 35-year-old 4, para 2 with EDC 06/16, estimated gestational age of 38+ weeks, admitted for early labor with some contraction. The patient has previous section x 2. She wishes to proceed with repeat section. She has history of hypothyroidism for which she is being monitored by her primary. NIPT is negative. She missed her AFP and she is advanced maternal age. PAST MEDICAL HISTORY: Hypothyroidism. PAST SURGICAL HISTORY: . SOCIAL HISTORY: None. FAMILY HISTORY: None. OBSTETRIC AND GYNECOLOGIC HISTORY: Two section. REVIEW OF SYSTEMS: Consistent with HPI. PHYSICAL EXAMINATION: VITAL SIGNS: Stable, afebrile. HEENT: Within normal limits. CARDIOVASCULAR: Regular rate and rhythm. LUNGS: Clear to auscultation. BREASTS: Symmetrical, no masses. ABDOMEN: Gravid. Positive heart. PELVIC: 1 cm, soft. EXTREMITIES: No clubbing, cyanosis or edema. IMPRESSION: * Intrauterine at 38+ weeks with previous section x 2. * Desires repeat section. * Hypothyroidism. * Morbid obesity. PLAN: Repeat section. Informed consent obtained. Risks, complications of surgery including infection, bleeding, hematoma formation, injury to bowel, bladder, surrounding organ, possibility of DVT, pulmonary embolism, and risks of anesthesia discussed with the patient. Options reviewed. All questions answered. The patient fully understands. She wishes to proceed with planned procedure. DO ROMAINE Wade TID: [id number] RECEIPT: [id number]
[2025-06-08] MEDS ORDERED: BUPIVACAINE/DEXTROSE MPF 0.75% 2 ML AMP IT ONE (06:52)
[2025-06-08] MEDS ORDERED: MORPHINE SULF PF 5 MG/10 ML VIAL ONE (06:52)
[2025-06-08] MEDS ORDERED: ONDANSETRON HCL 4 MG/2 ML VIAL IV PRN ×2 (07:00→08:15)
[2025-06-08] MEDS: LACT. RINGERS/OXYTOCIN 20UNITS 1,000 ML IV ONE (07:00)
[2025-06-08] MEDS: GUM (CHEWING) 1 GUM CHEW CHEW ONE (07:00)
[2025-06-08] MEDS ORDERED: ceFAZolin 1GM/50ML 50 ML IV SCH ×3 (07:00→11:00)
[2025-06-08] MEDS ORDERED: ONDANSETRON HCL 4 MG/2 ML VIAL ONE (07:15)
[2025-06-08] MEDS ORDERED: NALOXONE HCL 0.4 MG/ML VIAL IV PRN (08:15)
[2025-06-08] MEDS: NALBUPHINE HCL 10 MG/1ml INJECTION SUBCUT ONE (08:15)
[2025-06-08] MEDS ORDERED: ACETAMINOPHEN IV 1000 MG/100ML (10MG/ML) IV PRN (08:15)
[2025-06-08] MEDS ORDERED: HYDROmorphone HCL 2 MG/ML VL/or syr IV PRN ×2 (08:15)
[2025-06-08] MEDS ORDERED: diphenhdrAMINE HCL 50 MG/1 ML VL IV PRN (08:15)
[2025-06-08] MEDS: ONDANSETRON HCL 4 MG/2 ML VIAL IV PRN (08:22)
[2025-06-08] MEDS: LACTATED RINGER'S 1,000 ML IV SCH (08:56)
[2025-06-08] MEDS: LACTATED RINGER'S 1,000 ML IV ONE (08:56)
[2025-06-08] MEDS: ceFAZolin 2 GM/D5W50ml 50 ML IV ONE (08:57)
[2025-06-08] MEDS: ACETAMINOPHEN IV 1000 MG/100ML (10MG/ML) IV PRN (10:54)
--- NOTE | 2025-06-08 12:14 | DVHOP2 ---
Operative Report DATE OF OPERATION:06/08/25 PREOPERATIVE DIAGNOSES: [iup at 38+wks with previous csx2,desires rcs,ama,hypothyroidism,morbid obesity] POSTOPERATIVE DIAGNOSES: [same] OPERATION PERFORMED: Repeat Section FINDINGS: [b] infant. Apgars of [9] and [9]. Weight [good] crying tone. [clear] amniotic fluid. Placenta and three-vessel were intact. Normal tubes, ovaries, and uterus. Moderate scar tissue. SURGEON: Ayaka Corral D.O. SENIOR REACTOR OPERATOR: extracorporeal technician, [des]. ANESTHESIOLOGIST: Maxwell gomez ANESTHESIA: [Duramorph spinal, regional]. COMPLICATIONS: [none]. ESTIMATED BLOOD LOSS: [800] mL. BLOOD PRODUCTS USED: [none]. PROCEDURE IN DETAIL: The patient was taken to the operating room, placed in sitting position, and spinal was placed without difficulty. She was then prepped and draped in a sterile fashion. A low Pfannenstiel incision was made scapel. At this point, it was carried down through the rectus fascia, nicked in the midline, and carried laterally. The rectus muscles were in the midline. Peritoneum was identified and entered with sharp dissection. Vesicouterine peritoneum was taken off the lower uterine segment. A lower uterine transverse incision was made with a scalpel down the chorionic membranes, ruptured with hemostat. Infant was in vertex position. One hand was placed in the lower uterine segment. Head was essentially delivered spontaneously. Nose and mouth were bulb suctioned. Shoulders and torso were delivered without difficulty. Again, pharynx, nose, and mouth were re-suctioned with vigorous crying tone. Cord was cut. The infant was handed off to the awaiting Respiratory. At this point, umbilical blood sample was taken. Placenta was removed. Uterus was exteriorized, cleared off all clots and debris, irrigated, and closed with a double layer of 0-Vicryl. The vesicouterine peritoneum was incorporated into this closure. We had complete hemostasis. EBL was [800] mL. The instrument, lap, and sponge count was correct x1. The uterus was placed back into the peritoneum. The peritoneal cavity was re-inspected and the lower uterine incision with good hemostasis. We closed the peritoneum with running continuous of 2-0 Vicryl. The Rectus Fascia was closed with 0-PDS, running continuous, looped-0. The skin was closed undermined, irrigated, and close with liliya. CONDITION: The patient's and the infant's condition is stable and but guarded. Visit Coding OBGYN Date of Service: Jun 08, 2025 Billing Provider: AYAKA CORRAL DO INFANTRY OPERATIONS SPECIALIST Common Visit Codes: 85057-[id number] OBS CARE (HIGH) INFANTRY OPERATIONS SPECIALIST Procedure Codes: 56458-[id number] DELIVERY ONLY AYAKA CORRAL DO Jun 08, 2025 12:14
--- NOTE | 2025-06-08 12:16 | POSTOP ---
Post-Operative Note Post-Operative Note Preop Diagnosis iup at 38wks in labor,desires rcs,morbid obesity,hypothuyroid Postop Diagnosis: same Operation performed rcs Specimen baby girl,apgars 9-9 Anesthesia: Regional Anesthesiologist: nuygen Blood Loss(fluid mgmt) 800ml Surgeon Ozzie Delatorre Platform Attendant des Implant na Complications & Mgmt none Date 06/08/25 Time 12:14 Visit Coding OBGYN Date of Service: Jun 08, 2025 Billing Provider: OZZIE DELATORRE DO SENIOR PROJECT MANAGER Common Visit Codes: [id number] OBS CARE (HIGH) SENIOR PROJECT MANAGER Procedure Codes: 98978-Q-[id number] DELIVERY ONLY OZZIE DELATORRE DO Jun 08, 2025 12:16
[2025-06-08] MEDS: ceFAZolin 1GM/50ML 50 ML IV SCH (14:49)
[2025-06-08] MEDS: KETOROLAC TROMETH 30 MG/ML 1ML VIAL IV PRN (19:01)
[2025-06-08 22:10] LABS: Hematocrit 29.4 % (36.0-46.0); Hemoglobin 9.5 g/dL (12.2-16.2); Mean Corpuscular Hemoglobin 25.1 pg (28.0-32.0); Mean Corpuscular Volume 77.6 fL (80.0-100.0); Nucleated Red Blood Cells % 0.1 %
[2025-06-09] VITALS (10 sets, daily range): BP systolic 99–127; BP diastolic 44–63; PULSE 80–93; RESP 16–18; TEMP 98–98.5; O2SAT 95–100
--- NOTE | 2025-06-09 01:49 | DVHPN2 ---
Progress Note Date Seen: Jun 09, 2025 Subjective Stoney is sitting up in bed positioning baby to breastfeed on the R side. SUBJECTIVE: -Lochia minimal -Regular diet well tolerated. -Ambulating and voiding well w/o feeling dizzy or lightheaded -Pain relieved with IV medication PRN -No flatus or BM yet. - w/o problem vital signs Vital Sign Date Time Temp Pulse Resp B/P (MAP) Pulse Ox O2 Delivery O2 Flow Rate FiO2 06/08/25 23:17 98.2 83 17 99/60 (73) 97 98.2 06/08/25 18:52 Room Air 06/08/25 08:07 6.0 97 Total Intake and Output 06/08/25 06/08/25 06/09/25 15:00 23:00 07:00 Output Total 550 ml 1100 ml Balance -550 ml -1100 ml medications Current Medications Medications Dose Ordered Sig/Kathy Route Start Time Stop Time Status Last Admin Dose Admin Lactated Ringer's 1,000 ml @ 125 mls/hr Q8H IV 06/08/25 04:30 06/08/25 13:09 125 MLS/HR Ondansetron HCl 4 mg Q4HP PRN IV 06/08/25 07:00 Diphenhydramine HCl 25 mg Q4HP PRN IV 06/08/25 08:15 Ondansetron HCl 4 mg Q4HP PRN IV 06/08/25 08:15 Cancel Ketorolac Tromethamine 30 mg Q6HP PRN IV 06/08/25 08:15 06/13/25 08:14 06/08/25 19:01 30 MG Acetaminophen 1,000 mg Q8HP PRN IV 06/08/25 09:00 06/09/25 06:01 06/08/25 10:54 1,000 MG Cefazolin Sodium 50 ml @ 100 mls/hr Q8H IV 06/08/25 15:00 06/09/25 07:29 06/08/25 22:30 100 MLS/HR laboratory and microbiology Laboratory Tests 06/08/25 20:45 06/07/25 10:34 Test 06/07/25 10:34 Range/Units Serum Glucose 91 74-106 mg/dL Objective OBJECTIVE: -A&O x4. No apparent distress. Affect appropriate -Afebrile, VSS -Chest: heart and lung sounds normal. -Breasts: Nipples intact w/o cracks or soreness -Abdomen: normal BS, soft, non-tender, no rebound or guarding, fundus firm @ U- 1, -Lower abdominal incision site with dressing dry and intact. No edema, erythema or induration -Extremities: no edema or tenderness Problems(with codes): (1) Status post delivery (2) Hypothyroid Assessment/Plan ASSESSMENT 35 yo now Post operative & ppd #1 s/p repeat Section , doing well. Blood Type: O- (baby B-) Breast feeding Rubella Immune PLAN -24 hour PP order set placed for PO medication management. Discussed all options with patient and encouraged patient to use norco only as needed to prevent constipation and gas pains. -Increase fluid intake and fiber in diet to promote regular bowel movements, Laxative PRN -Educated patient on self-care and warning signs to watch for, including PPH, PPD, infection, and pre-eclampsia -Continue routine care. Encouraged patient to balance activity with rest today. Answered all questions and concerns Plan discussed with: Patient, Spouse Visit Coding OBGYN Date of Service: Jun 09, 2025 Billing Provider: MAXIMINO RUTLEDGE CNM SPRAY OPERATOR Common Visit Codes: [id number] INP/OBS CARE(MOD) MAXIMINO RUTLEDGE CNM Jun 09, 2025 01:49
[2025-06-09] MEDS ORDERED: BISACODYL 10 MG RECT SUPP PR PRN (05:30)
[2025-06-09] MEDS: ACETAMINOPHEN 325 MG TAB PO SCH (06:00)
[2025-06-09] MEDS: ROCURONIUM 10MG/ML 10ML VIAL IV ONE (06:36)
[2025-06-09] MEDS: SUCCINYLCHOLINE CHLORIDE 20 MG/ML 10ML VIAL IV ONE (06:36)
[2025-06-09 06:43] LABS: Hemoglobin 9.4 g/dL (12.2-16.2)
[2025-06-09 06:45] LABS: Hematocrit 28.3 % (36.0-46.0); Mean Corpuscular Hemoglobin 25.6 pg (28.0-32.0); Mean Corpuscular Volume 76.9 fL (80.0-100.0); Nucleated Red Blood Cells % 0.1 %
[2025-06-09] MEDS ORDERED: IBUP-1456 PO (06:54)
[2025-06-09] MEDS ORDERED: ZOFR4T PO (06:54)
[2025-06-09] MEDS ORDERED: HYDR-4072 PO (06:54)
[2025-06-09] MEDS ORDERED: DOCU-94 PO (06:55)
[2025-06-09] MEDS: IBUPROFEN 800 MG TAB PO SCH (07:53)
[2025-06-09] MEDS: DOCUSATE SOD 100 MG CAP PO SCH (11:59)
[2025-06-09] MEDS: HYDROcodone-ACET 5/325MG TAB PO PRN (11:59)
[2025-06-09] MEDS: SIMETHICONE 80 MG CHEWABLE TABLET PO PRN (22:10)
[2025-06-10 03:00] VITALS: BP 127/59; PULSE 89; RESP 16; TEMP 98.2; O2SAT 97
--- NOTE | 2025-06-10 06:21 | DVHDS2 ---
Discharge Summary Discharge Summary Date of Admission: Jun 08, 2025 Date of Discharge: Jun 10, 2025 Discharge Diagnosis: Stable Repeat Section Hospital Course PP Note C- Section yo now Post operative & ppd #2 s/p Repeat Section doing well. Subjective Lochia minimal. Advancing Regular diet well tolerated. Ambulating and voiding well w/o feeling dizzy or lightheaded. Pain relieved with oral / IV / analgesics. [place] 5/325 P.O. Q6H Passing flatus but no BM yet. w/o problem Desires to be discharged today Objective Afebrile, VSS . Vital Signs Date Time Temp Pulse Resp B/P (MAP) Pulse Ox O2 Delivery O2 Flow Rate FiO2 06/10/25 03:00 98.2 89 16 127/59 (81) 97 98.2 06/09/25 19:00 Room Air 06/08/25 08:07 6.0 97 Chest: heart and lung sounds normal. Breasts: Nipples intact w/o cracks or soreness Abdomen: normal BS, soft, non-tender, no rebound or guarding, Fundus firm @ -1 Umbilicus Lower abdominal Incision site with Sylke / dressing / Scant dried blood exudate on dressing. No edema, erythema or induration Extremities: no edema or tenderness Lochia - minimal Labs Laboratory Tests Test 06/09/25 05:59 06/07/25 10:34 06/07/25 10:00 Range/Units White Blood Count 10.6 4.4-10.8 10^3/uL Red Blood Count 3.67 L 4.0-5.20 10^6/uL Hemoglobin 9.4 L 12.2-16.2 g/dL Hematocrit 28.3 L 36.0-46.0 % Mean Corpuscular Volume 76.9 L 80.0-100.0 fL Mean Corpuscular Hemoglobin 25.6 L 28.0-32.0 pg Mean Corpuscular Hemoglobin Concent 33.2 32.0-36.0 g/dL Red Cell Distribution Width 16.8 H 11.8-14.3 % Platelet Count 237 140-450 10^3/uL Mean Platelet Volume 7.8 6.9-10.8 fL Neutrophils (%) (Auto) 77.3 37.0-80.0 % Lymphocytes (%) (Auto) 13.8 10.0-50.0 % Monocytes (%) (Auto) 8.0 0.0-12.0 % Eosinophils (%) (Auto) 0.7 0.0-7.0 % Basophils (%) (Auto) 0.2 0.0-2.0 % Neutrophils # (Auto) 8.2 1.6-8.6 10 ^3/uL Lymphocytes # (Auto) 1.5 0.4-5.4 10 ^3/uL Monocytes # (Auto) 0.8 0-1.3 10 ^3/uL Eosinophils # (Auto) 0.1 0-0.8 10 ^3/uL Basophils # (Auto) 0 0-0.2 10 ^3/uL Nucleated Red Blood Cells 0.1 % Prothrombin Time 10.3 9.3-11.8 sec Prothrombin Time INR 0.97 0.9-1.15 Activated Partial Thromboplast Time 26.1 24.5-34.5 SEC Sodium Level 140 136-145 mmol/L Potassium Level 3.8 3.5-5.1 mmol/L Chloride Level 107 98-107 mmol/L Carbon Dioxide Level 23 20-31 mmol/L Anion Gap 10 5-15 Blood Urea Nitrogen 8 L 9-23 mg/dL Creatinine 0.59 0.550-1.02 mg/dL Glomerular Filtration Rate Calc 120 >90 mL/min BUN/Creatinine Ratio 13.6 10.0-20.0 Serum Glucose 91 74-106 mg/dL Calcium Level 9.1 8.7-10.4 mg/dL Total Bilirubin 0.3 0.2-1.0 mg/dL Aspartate Amino Transferase (AST) 19 13-40 U/L Alanine Aminotransferase (ALT) 16 7-40 U/L Alkaline Phosphatase 102 46-116 U/L Total Protein 6.5 5.7-8.2 g/dL Albumin 3.8 3.2-4.8 g/dL Treponema pallidum Antibody Non-reactive Negative Hepatitis C Antibody Negative Negative Urine Color Colorless Yellow Urine Clarity Clear Clear Urine pH 6.0 5.0-9.0 Urine Specific [place] 1.005 1.001-1.035 Urine Protein Negative Negative Urine Ketones Negative Negative Urine Blood Negative Negative /uL Urine Nitrite Negative Negative Urine Bilirubin Negative Negative Urine Urobilinogen Normal Negative mg/dL Urine Leukocyte Esterase Negative Negative /uL Urine RBC 1 0 - 4 /hpf Urine Microscopic WBC < 1 0-5 /HPF Urine Squamous Epithelial Cells Few <5 /hpf Urine Bacteria None seen None Seen /hpf Urine Glucose Normal Normal mg/dL Urine Opiates Screen Neg NEGATIVE Urine Fentanyl Screen Neg NEGATIVE Urine Barbiturates Screen Neg NEGATIVE Urine Phencyclidine Screen Neg NEGATIVE Urine Amphetamines Screen Neg NEGATIVE Urine Benzodiazepines Screen Neg NEGATIVE Urine Cocaine Screen Neg NEGATIVE Urine Cannabinoids Screen Neg NEGATIVE Current Medications Medications (Trade) Dose Ordered Sig/Kathy Route PRN Reason Start Time Stop Time Status Last Admin Dose Admin Lactated Ringer's 1,000 ml @ 125 mls/hr Q8H IV 06/08/25 04:30 06/08/25 13:09 Lactated Ringer's 1,000 ml @ 1,000 mls/hr Q1H ONCE IV 06/08/25 04:30 06/08/25 05:29 DC 06/08/25 08:56 Cefazolin Sodium/ Dextrose 50 ml @ 50 mls/hr ONCE ONCE IV 06/08/25 04:30 06/08/25 05:29 DC 06/08/25 08:57 Morphine Sulfate (Duramorph) 5 mg STK-MED ONCE .ROUTE 06/08/25 06:52 06/08/25 06:48 DC Epinephrine HCl 1 mg STK-MED ONCE .ROUTE 06/08/25 06:52 06/08/25 06:48 DC Oxytocin 10 unt STK-MED ONCE .ROUTE 06/08/25 06:52 06/08/25 06:48 DC Bupivacaine HCl/ Dextrose (Sensorcaine-Mpf Spinal) 2 ml STK-MED ONCE IT 06/08/25 06:52 06/08/25 06:48 DC Oxytocin 1,000 ml @ 125 mls/hr Q8H ONCE IV 06/08/25 07:00 06/08/25 14:59 DC Ondansetron HCl (Zofran) 4 mg Q4HP PRN IV NAUSEA / VOMITING 06/08/25 07:00 Cefazolin Sodium 50 ml @ 100 mls/hr Q8H IV 06/08/25 07:00 06/08/25 09:00 DC [place] Gum (Chewing Gum) 1 gum ONCE ONCE CHEW 06/08/25 07:00 06/08/25 07:01 DC Ephedrine Sulfate (ePHEDrine SULFATE) 50 mg STK-MED ONCE .ROUTE 06/08/25 07:13 06/08/25 07:10 DC Ondansetron HCl (Zofran) 4 mg STK-MED ONCE .ROUTE 06/08/25 07:15 06/08/25 07:11 DC Acetaminophen (Ofirmev) 1,000 mg [id number] PRN IV PAIN SCALE 1-3 OR TEMP>100.4 06/08/25 08:15 06/08/25 08:48 DC Ondansetron HCl (Zofran) 4 mg ONCE PRN IV NAUSEA / VOMITING 06/08/25 08:15 06/08/25 08:48 DC 06/08/25 08:22 Hydromorphone HCl (Dilaudid Injection) 0.5 mg Q10M PRN IV SEVERE PAIN (7-10 PAIN SCALE) 06/08/25 08:15 06/08/25 08:56 DC Diphenhydramine HCl (Benadryl Injection) 25 mg Q4HP PRN IV FOR ITCHING 06/08/25 08:15 Ondansetron HCl (Zofran) 4 mg Q4HP PRN IV NAUSEA / VOMITING 06/08/25 08:15 Cancel Nalbuphine HCl (Nubain) 10 mg LEADER WRITER ONCE SUBCUT 06/08/25 08:15 06/08/25 08:48 DC Naloxone HCl (Narcan) 0.2 mg Q5M PRN IV For respirations < than 10/min 06/08/25 08:15 06/08/25 08:48 DC Hydromorphone HCl (Dilaudid Injection) 0.5 mg Q15M PRN IV SEVERE PAIN (7-10 PAIN SCALE) 06/08/25 08:15 06/08/25 08:48 DC Dexamethasone Sodium Phosphate (Decadron Injection) 10 mg LEADER WRITER PRN IV FOR ITCHING 06/08/25 08:15 06/08/25 08:48 DC Ketorolac Tromethamine (Toradol Injection) 30 mg Q6HP PRN IV MODERATE PAIN (4-6 PAIN SCALE) 06/08/25 08:15 06/13/25 08:14 06/09/25 05:25 Cefazolin Sodium 50 ml @ 100 mls/hr Q8H IV 06/08/25 09:00 06/08/25 10:54 DC Acetaminophen (Ofirmev) 1,000 mg Q8HP PRN IV PAIN SCALE 1-3 OR TEMP>100.4 06/08/25 09:00 06/09/25 06:01 DC 06/08/25 10:54 Cefazolin Sodium 50 ml @ 100 mls/hr Q8H IV 06/08/25 11:00 06/08/25 13:09 DC Cefazolin Sodium 50 ml @ 100 mls/hr Q8H IV 06/08/25 15:00 06/09/25 07:29 DC 06/09/25 07:54 Docusate Sodium (Colace Capsule) 100 mg Q12HR PO 06/09/25 10:00 06/09/25 22:10 Dimethicone (Mylicon Tab) 80 mg QID PRN PO FOR STOMACH DISTRESS 06/09/25 05:30 06/09/25 22:10 Bisacodyl (Dulcolax Suppository) 10 mg DAILYP PRN NC FOR CONSTIPATION 06/09/25 05:30 Ibuprofen (Motrin Tablet) 800 mg Q8HP PO 06/09/25 06:00 06/09/25 16:36 Acetaminophen/ Hydrocodone Bitart ([place] 5/325MG Tab) 1 tab Q4HPRN PRN PO FOR PAIN 1-6 06/09/25 05:30 06/10/25 03:10 Acetaminophen (Tylenol Tablet) 650 mg Q6HP PO 06/09/25 06:00 06/09/25 22:01 Succinylcholine Chloride (Quelicin) STK-MED ONCE IV 06/09/25 06:36 06/09/25 06:31 DC Rocuronium [place] STK-MED ONCE IV 06/09/25 06:36 06/09/25 06:32 DC Assessment/Plan: Blood Type: O Rh: Negative (No [place] needed) Infant Blood Type B-Negative Breast feeding exclusive Rubella Immune GBS:Unknown Pain control with oral medications Bowel regimen: Increase fluid intake and fiber in diet, Laxative PRN PP BCM Plan: Discharge plan: May discharge home later today if condition remains stable FOR D/C SUMMARY Diet: Routine regular diet rich in fiber, protein, iron and vitamin C with adequate fluid intake. Activity: Unrestricted. Advance as tolerated. Balance activities with rest periods. No heavy lifting, pushing or straining. Pelvic rest x 6weeks Follow up with OB Provider in 1 week Medications: Ibuprofen 600mg every 6 hours as needed for pain. Continue Vitamin and iron Instructions: Post operative and self care instructions given. self care instructions given. emergency signs and symptoms including but not limited to pre-eclampsia precautions and signs of infection, PPH & of PPD reviewed with patient. Follow up with OB Provider in 1 week Discharge Disposition: Home Discharge Care Plan Problem Pain Goals Pain relieved Initiate lifestyle change Adequate fluid volume Skin remains intact Remain free of infection Instructions Take Rx medications, Notify MD of any issues, Keep list of meds w/ you Risk factors Visit Coding OBGYN Date of Service: Jun 10, 2025 Billing Provider: PERLITA FAM CNM ENRICHMENT SPECIALIST Common Visit Codes: [id number] OBS CARE (MOD), [id number] INP/OBS CARE (MOD) PERLITA FAMNJct 2024 06:21
[2025-06-10 06:55] VITALS: BP 118/57; PULSE 80; RESP 18; TEMP 98.3; O2SAT 98
== END 2025-06-10 10:16 | disposition home or self-care (01) | DRG 788 ==
LOC: LDRP 04:06
PROVIDERS: ADMIT Obstetrics & Gynecology; ATTEND Obstetrics & Gynecology
PROC: 10D00Z1 Extraction of Products of Conception, Low, Open Approach (ICD-10-PCS; principal; 2025-06-08 06:58)
DX: O34.211 Maternal care for low transverse scar from previous cesarean delivery (principal); O99.284 Endocrine, nutritional and metabolic diseases complicating childbirth; E03.9 Hypothyroidism, unspecified; Z37.0 Single live birth; Z3A.38 38 weeks gestation of pregnancy; O99.214 Obesity complicating childbirth; E66.01 Morbid (severe) obesity due to excess calories
CPT/HCPCS: 36415; 59025; 80053; 80307; 81001; 85025; 85610; 85730; 86780; 86803; 86850; 86900; 86901; 94760; 94762; 96360; 96361; 96365; 96374; G0378; J0131; J0169; J0330; J1885; J2405; J2590